=== PATIENT | male | born 1990 | race Caucasian/White ===

== ENCOUNTER 2024-08-29 03:26 | Emergency (ER) | payer SELFPAY ==
[~2024-08-29] VITALS: Ht 177.8 cm; Wt 64.0 kg
[2024-08-29 03:29] VITALS: O2SAT 99
[2024-08-29 03:30] VITALS: BP 136/90; PULSE 50; RESP 18; TEMP 37.00296; O2SAT 100
[2024-08-29] MEDS ORDERED: NALOXONE HCL 1MG/ML 2ML VIAL ONE (03:30)
[2024-08-29 03:43] LABS: BASOPHILS % 1.1 % (0.0-2.0); EOSINOPHILS % 1.1 % (0.0-5.0); HEMATOCRIT. 42.5 % (42.0-52.0); HEMOGLOBIN. 14.6 g/dL (14.0-18.0); LYMPHOCYTES % 37.4 % (20.0-50.0); MEAN CORPUSCULAR HEMOGLOBIN 31.6 pg (28.0-32.0); MEAN CORPUSCULAR HGB CONC 34.3 g/dL (31.0-37.0); MEAN CORPUSCULAR VOLUME 91.9 fL (80.0-94.0); MEAN PLATELET VOLUME 8.7 fl (7.4-10.4); MONOCYTES % 8.7 % (2.0-8.0); NEUTROPHILS % 51.7 % (40.0-76.0); PLATELET 267 x1000/uL (130-400); RED BLOOD CELL COUNT 4.63 mill/uL (4.7-6.1); RED CELL DISTRIBUTION WIDTH 13.9 % (11.6-14.6)
[2024-08-29] MEDS: NALOXONE HCL 1MG/ML 2ML VIAL IV ONE (03:46)
[2024-08-29 03:48] LABS: CHLORIDE 107 mEq/L (98-107); POTASSIUM 3.8 mEq/L (3.5-5.1); SODIUM 143 mEq/L (136-145)
[2024-08-29 03:49] LABS: CARBON DIOXIDE 29 mEq/L (21-32)
[2024-08-29 03:50] LABS: CALCIUM 9.1 mg/dL (8.7-10.4)
[2024-08-29 03:54] LABS: GLUCOSE 102 mg/dL (70-105); UREA NITROGEN BLOOD 9 mg/dL (9-23)
[2024-08-29 03:56] LABS: ALANINE AMINOTRANSFERASE 14 IU/L (10-49); ALBUMIN 4.4 g/dL (3.2-4.8); ASPARTATE AMINOTRANSFERASE 21 IU/L (<34)
[2024-08-29 03:57] LABS: BILIRUBIN TOTAL 0.4 mg/dL (0.1-1.0); PROTEIN TOTAL 7.2 g/dL (6.0-8.3)
[2024-08-29 05:05] LABS: ETHANOL BLOOD < 10 mg/dL (<10)
[2024-08-29 05:13] LABS: CLARITY URINE CLEAR (CLEAR); COLOR URINE YELLOW (YELLOW); GLUCOSE URINE NEGATIVE (NEGATIVE); KETONES URINE TRACE (NEGATIVE); LEUKOCYTE ESTERASE URINE NEGATIVE (NEGATIVE); NITRITE URINE NEGATIVE (NEGATIVE); OCCULT BLOOD URINE 2+ (NEGATIVE); PROTEIN URINE NEGATIVE (NEGATIVE); SPECIFIC GRAVITY URINE 1.018 (1.005-1.030)
[2024-08-29 05:17] LABS: *AMPHETAMINES SCREEN URINE PRESUMPTIVE POSITIVE (NEGATIVE); *BARBITURATES SCREEN URINE NEGATIVE (NEGATIVE); *BENZODIAZEPINES SCREEN URINE NEGATIVE (NEGATIVE); *COCAINE SCREEN URINE NEGATIVE (NEGATIVE); CANNABINOID URINE SCREEN NEGATIVE (NEGATIVE); METHADONE URINE SCREEN NEGATIVE (NEGATIVE); OPIATES URINE SCREEN NEGATIVE (NEGATIVE); PHENCYCLIDINE URINE SCREEN PRESUMTIVE POSITIVE (NEGATIVE)
[2024-08-29 05:18] LABS: ECSTASY MDMA SCREEN URINE CONF.TEST INDICATED (NEGATIVE)
[2024-08-29 06:42] LABS: SQUAMOUS EPITHELIAL CELL URINE FEW /lpf (RARE/1+)
[2024-08-29 06:46] LABS: WBC URINE 0-2 /hpf (0-2)
[2024-08-29 06:47] LABS: BACTERIA URINE NONE SEEN; RBC URINE 50-100 /hpf (0-2)
== END 2024-08-29 06:03 | disposition home or self-care (01) ==
LOC: ER 03:26 → EDBD 03:26 → ER 06:03
DX: T43.641A Poisoning by ecstasy, accidental (unintentional), initial encounter (principal); R11.10 Vomiting, unspecified; F19.10 Other psychoactive substance abuse, uncomplicated; X58.XXXA Exposure to other specified factors, initial encounter
CPT/HCPCS: 80053; 80305; 81003; 80320; 83605; 85025; 36415; 71045; 96374; 99291; J2310; Z7610 ×2; G0480

== ENCOUNTER 2025-10-26 02:07 | Emergency (ER) | payer MEDICAID ==
[~2025-10-26] VITALS: Ht 185.4 cm; Wt 70.0 kg
[2025-10-26 02:09] VITALS: O2SAT 98
[2025-10-26 02:26] VITALS: BP 113/80; PULSE 112; RESP 18; TEMP 37; O2SAT 100
[2025-10-26] MEDS ORDERED: CEFTRIAXONE SODIUM 500MG VIAL IM ONE (03:15)
== END 2025-10-26 03:39 | disposition left against medical advice (07) ==
LOC: ER 02:07
DX: Z11.3 Encounter for screening for infections with a predominantly sexual mode of transmission (principal); Z53.21 Procedure and treatment not carried out due to patient leaving prior to being seen by health care provider
CPT/HCPCS: 99281; J0696